=== PATIENT | male | born 1995 | race Caucasian/White ===

== ENCOUNTER 2023-03-05 08:00 | Outpatient (CLI) | payer OTHER ==
--- NOTE | 2023-03-05 16:48 | XRAY Report ---
PROCEDURE: Wrist 3 View RT INDICATIONS: RIGHT WRIST CYST TECHNIQUE: 3 views of the wrist were acquired. COMPARISON: None. FINDINGS: Bones: No fractures or dislocations. Mild appearance of increased density at the site of metallic ma rking indicated at the lateral aspect of the distal radius. No underlying osseous erosion. Soft tissues: No suspicious soft tissue calcifications or masses. IMPRESSION: Slight appearance of increased density at the site of cyst concern. It is incompletely characterized on the basis of this exam. If concern persists, MRI is recommended. No adjacent osseous erosion. Reviewed by: Lizette Chow MD on 03/05/2023 4:47 PM PDT Approved by: Lizette Chow MD on 03/05/2023 4:47 PM PDT Station ID: [id number]
== END 2023-03-05 23:59 | disposition home or self-care (01) ==
LOC: DI.WOS 08:00
PROVIDERS: ATTEND Physician Assistant Surgical
DX: M67.431 Ganglion, right wrist (principal)